=== PATIENT | female | born 1975 | race Caucasian/White ===

== ENCOUNTER 2024-06-24 21:15 | Emergency (ER) | payer BC, SELFPAY ==
[2024-06-24 21:17] VITALS: BP 131/73
[2024-06-24 21:56] VITALS: BMI 24.6
--- NOTE | 2024-06-24 22:21 | ED.SKININJ ---
HPI-Injury
<Hari Wild MD, Resident - Last Filed: 06/24/24 23:57>
General
Chief Complaint: Bite
Time Seen by Provider: 06/24/24 22:09
History of Present Illness-Injury
Initial Injury comments:
48-year-old female, Ms. Fabi Freitas presented to the ER reporting a dog bite wound. Patient was strolling around 8 PM in her neighborhood and was bit by her dog and her lower legs. She does not know about the immunization status of the dog
initially but later came to know that this vaccinated completely. Patient reports having a lacerated wound on the left lower extremity, posterior aspect. No swelling, no bleeding. Patient is not on any blood thinner, no history of diabetes.
Patient reports that her last tetanus shot was in 2018. Patient reports that she she recently completed a 5-day course of azithromycin for her dental implant, last dose was yesterday.
Phy Exam
<Hari Wild MD, Resident - Last Filed: 06/24/24 23:57>
Physical Exam
Physical Exam:
GEN: Well appearing, NAD, WDWN
Eyes: PERRLA, EOMs intact, no scleral icterus
HENT: NCAT, oral mucosa moist, no JVD, no cervical adenopathy.
Lungs: CTAB, no wheezes, rales, rhonchi, normal chest wall excursion
Cardiac: RRR, S1-S2+, no peripheral edema. Radial pulses 2+ bilat
Abdomen: S, NT, ND, NABS, no masses or hepatosplenomegaly
Neuro: AO x 3, no focal deficits to BUE/BLE, normal sensation throughout
MSK: 1.5cm linear lacerated wound on the posterior aspect of the left lower leg in the region of calf. Minimal gaping, no active bleeding, no surrounding soft tissue swelling, minimal tenderness.
Psych: Calm, cooperative, proper hygiene
Course
<Hari Wild MD, Resident - Last Filed: 06/24/24 23:57>
Orders/Labs/Results
Orders:
Orders
06/24/24 22:26
Amoxicillin 875 mg/Clav 125 mg [Augmentin 875 mg/125 mg] 1 tablet PO NOW STA
Tetanus/Diphth/Acelpertussis [Adacel] 0.5 ml IM .ONCE ONE
Vital Signs
Initial and Last Documented VS:
Initial Vital Signs
Temp Pulse Resp BP Pulse Ox
99 F 65 14 131/73 100
06/24/24 21:17 06/24/24 21:17 06/24/24 21:17 06/24/24 21:17 06/24/24 21:17
Last Documented Vital Signs
Temp Pulse Resp BP Pulse Ox
99 F 65 14 131/73 100
06/24/24 21:17 06/24/24 21:17 06/24/24 21:17 06/24/24 21:17 06/24/24 21:17
<Barbara Spencer, DO - Last Filed: 06/24/24 22:50>
Orders/Labs/Results
Orders:
Orders
06/24/24 22:26
Amoxicillin 875 mg/Clav 125 mg [Augmentin 875 mg/125 mg] 1 tablet PO NOW STA
Tetanus/Diphth/Acelpertussis [Adacel] 0.5 ml IM .ONCE ONE
Vital Signs
Initial and Last Documented VS:
Initial Vital Signs
Temp Pulse Resp BP Pulse Ox
99 F 65 14 131/73 100
06/24/24 21:17 06/24/24 21:17 06/24/24 21:17 06/24/24 21:17 06/24/24 21:17
Last Documented Vital Signs
Temp Pulse Resp BP Pulse Ox
99 F 65 14 131/73 100
06/24/24 21:17 06/24/24 21:17 06/24/24 21:17 06/24/24 21:17 06/24/24 21:17
<Barbara Spencer DO - Last Filed: 06/24/24 22:50>
*Pulse Oximetry
Patient hypoxic: no
*Critical Care Note
Total Time (30-74mins, 75-104mins- exclusive of procedures): Not Applicable
ED Attending Note
<Hari Wild MD, Resident - Last Filed: 06/24/24 23:57>
-
Portions of this chart may have been created with voice recognition software.� Occasional wrong word or��sound alike� substitutions may have occurred due to the inherent limitations of voice recognition software.
<Barbara Spencer DO - Last Filed: 06/24/24 22:50>
ED Attending Note
Patient seen and examined by attending physician: Yes
I performed a history and physical exam of patient and discussed management with resident, I reviewed resident's note and agree with documented findings and plan of care.: Yes
ED Attending Note:
This is a 48-year-old woman with no significant past medical history, was walking in her neighborhood with her daughter in the [facility] when a neighbors small dog ran out of the house and started to bite her lower legs. The neighbor eventually came
out and retrieve the dog. Patient presents with several superficial bite wounds to her right lower leg and 1 bite wound/laceration to her left posterior proximal calf.
Patient initially unsure of the dog's immunization status but the neighbor has since sent her a picture of the dogs up-to-date rabies vaccination records.
She notes very mild local tenderness. No significant bleeding. No weakness or numbness.
Patient's last tetanus booster was with last October 2018.
She recently completed 5-day course of Zithromax yesterday after undergoing dental implant procedure.
Other than that she takes no medicines on a daily basis.
Patient is bright and alert, pleasant, appears in no acute distress.
Left posterior proximal calf has a 1.5 cm linear superficial laceration that is deep dermal in depth. Wound edges are minimally gapped. There is no active bleeding. No surrounding ecchymosis nor soft tissue swelling. No redness nor drainage.
Minimal local tenderness to palpation.
The right lower leg, anterior aspect has 2 superficial abrasions accompanied with with mild local ecchymosis. No soft tissue swelling. Minimal local tenderness to palpation. No redness no bleeding.
Sensation and strength intact. Peripheral pulses are full and equal.
Gait is brar and steady.
Will plan for thorough irrigation of left posterior calf wound and Steri-Strip wound closure.
Will initiate 5-day course of Augmentin for infection prevention and will update Tdap.
Routine wound care instructions provided.
Follow-up with PCP as needed.
Return precautions discussed.
Discharge Plan
Departure
Patient Disposition: Home (Routine Discharge)
Date of Disposition: 06/24/24
Time of Disposition: 22:28
Patient with high blood pressure during this ER visit?: No
Condition: Good
Discharge Problem:
Dog bite of multiple sites of right lower extremity, Dog bite of left lower leg
Instructions: Animal Bites (DC)
Prescriptions:
New
amoxicillin-pot clavulanate 875-125 mg tablet
1 tab PO BID Qty: 10 0RF
fluconazole 150 mg tablet
150 mg PO DAILY Qty: 1 0RF
No Action
PNV cmb#95-ferrous fumarate-FA [] 1 EACH tablet
1 ea PO DAILY
acetaminophen 325 MG tablet
650 mg PO Q4HPRN PRN (Reason: mild pain) 0RF
ibuprofen 600 MG tablet
600 mg PO Q6HPRN PRN (Reason: moderate pain/cramps) Qty: 30 0RF
Interventions
Interventions:
*Risk Screen - Suicide Last Done: 06/24/24 21:17
*General Assessment Last Done: 06/24/24 21:17
*Neglect/Abuse Screening Last Done: 06/24/24 21:17
ED- Fall Risk Assessment Last Done: 06/24/24 21:55
*ED COVID-19 Vaccine History Last Done: 06/24/24 21:17
*Nursing Disposition Last Done: 06/24/24 22:46
ED-Skin Assessment Last Done: 06/24/24 21:56
Discharge Date and Time
Discharge Date/Time: 06/24/24 22:47
Print Language: SAMI
[2024-06-24] MEDS: AUGMENTIN 875 MG/125 MG 1 TABLET PO (22:35)
[2024-06-24] MEDS: ADACEL 0.5 ML IM (22:35)
== END 2024-06-24 22:47 | disposition home or self-care (01) ==
LOC: EMR 21:15
PROVIDERS: EMERGENCY PHYSICIAN Emergency Medicine; FAMILY PHYSICIAN Family Medicine
DX: S81.852A Open bite, left lower leg, initial encounter (principal); S80.12XA Contusion of left lower leg, initial encounter; W54.0XXA Bitten by dog, initial encounter; Z23 Encounter for immunization
CPT/HCPCS: 99283; 90471; 90715